=== PATIENT | male | born 1975 | race Caucasian/White ===

== ENCOUNTER 2022-05-03 18:12 | Emergency (ER) | payer OTHER ==
[2022-05-03 19:05] VITALS: BP 156/93; PULSE 65; RESP 20; TEMP 97.5
[2022-05-03] MEDS ORDERED: LIDOCAINE 1% INJ 10MG/ML (20 ML MDV) SQ ONE (19:41)
--- NOTE | 2022-05-03 20:14 | ED ---
Wound/Laceration HPI - General Chief Complaint: Wound/Laceration Stated Complaint: finger laceration Time Seen by Provider: 05/03/22 19:23 Source: patient, RN notes reviewed Mode of arrival: ambulatory Limitations: no limitations - History of Present Illness Initial Comments: This is a 46-year-old male who presents to the emergency department with a lace ration to the left hand, just underneath the left index finger. Patient states that he was trying to take his trailer off of his pickup truck, when he acquired the laceration. Denies being in any significant pain at this time. His last tetanus vaccine was 2-3 years ago. Denies any fevers, chills, sore throat, cough, dyspnea, chest pain, palpitations, abdominal pain, nausea, vomiting, diarrhea, back pain, or headaches. Extremity Location: Left: Hand Place: home Patient Tetanus UTD: Yes Context: accidental - Related Data Previous Rx's Medication Instructions Recorded Cephalexin [Keflex] 500 mg PO Q8HR 5 Days #15 cap 05/03/22 Allergies Allergy/AdvReac Type Severity Reaction Status Date / Time No Known Allergies Allergy Verified 05/03/22 19:05 Review of Systems ROS Statement: Those systems with pertinent positive or pertinent negative responses have been documented in the HPI. ROS Other: All systems not noted in ROS Statement are negative. Past Medical History Past Medical History: No Reported History History of Any Multi-Drug Resistant Organisms: None Reported Past Surgical History: Orthopedic Surgery Past Psychological History: No Psychological Hx Reported Smoking Status: Never smoker Past Alcohol Use History: None Reported Past Drug Use History: Marijuana General Exam Limitations: no limitations General appearance: alert, in no apparent distress Head exam: Present: atraumatic, normocephalic, normal inspection Respiratory exam: Present: normal lung sounds bilaterally. Absent: respiratory distress, wheezes, rales, rhonchi, stridor Cardiovascular Exam: Present: regular rate, normal rhythm, normal heart sounds. Absent: systolic murmur, diastolic murmur, rubs, gallop, clicks Neurological exam: Present: alert, oriented X3, CN II-XII intact Psychiatric exam: Present: normal affect, normal mood Skin exam: Present: other (4 cm laceration on the left palm, just inferior to the bottom of the left index finger. Visible subcutaneous tissue. Minor active bleeding.) Course Vital Signs 05/03/22 19:03 Temperature 97.5 F L Pulse Rate 65 Respiratory 20 Rate Blood Pressure 156/93 O2 Sat by Pulse 98 Oximetry Procedures - Laceration Laceration #1 Consent Obtained: verbal consent Indication: laceration Site: hand Size (cm): 4 Description: linear Depth: simple, single layer Sedation/Analgesia: none Anesthetic Used: lidocaine 1% Anesthesia Technique: local infiltration Amount (mls): 2 Pre-repair: wound explored, irrigated extensively Type of Sutures: nylon Size of Sutures: 4-0 Number of Sutures: 5 Technique: simple, interrupted Medical Decision Making - Medical Decision Making This is a 46-year-old male who presents to the emergency department for a laceration to the left hand. This was repaired with sutures. The patient's tetanus status is up-to-date. Given that the wound was fairly contaminated, patient will be placed on a 5 day course of Keflex. He is instructed to return for suture removal in 10-12 days. Signs and symptoms of infection reviewed, and he is advised to return to the emergency department for reevaluation if this occurs. Advised [id number] ibuprofen and Tylenol as needed for pain relief. Return precautions reviewed in depth, the patient is instructed to return to the emergency department with any new, worsening, or concerning symptoms. Patient verbalized understanding. This case was discussed in detail with the attending ED physician. Presentation, findings, and treatment plan discussed in detail as well. Disposition Clinical Impression: Laceration Disposition: HOME SELF-CARE Instructions (If sedation given, give patient instructions): Care For Your Stitches (ED) Additional Instructions: Return to the emergency department with any new, worsening, or concerning symptoms and in 10-12 days for removal of your stitches. Take the antibiotic as prescribed for 5 days. Take ibuprofen and Tylenol as needed for pain relief. Prescriptions: Cephalexin [Keflex] 500 mg PO Q8HR 5 Days #15 cap Is patient prescribed a controlled substance at d/c from ED?: No Referrals: Curt Simpson MD [Primary Care Provider] - 1-2 days
== END 2022-05-03 20:43 | disposition home or self-care (01) ==
LOC: EC 18:12
DX: S61.412A Laceration without foreign body of left hand, initial encounter (principal); W26.8XXA Contact with other sharp object(s), not elsewhere classified, initial encounter
CPT/HCPCS: 12002; 99282; J2001

== ENCOUNTER 2024-11-03 08:33 | Observation (INO) | payer OTHER ==
[2024-11-03 09:15] LABS: Basophils # (A) 0.1 k/uL (0-0.2); Basophils % (A) 0 %; Eosinophils # (A) 0.3 k/uL (0-0.7); Eosinophils % (A) 3 %; HCT 49.2 % (39.0-53.0); HGB 17.1 gm/dL (13.0-17.5); Lymphocytes # (A) 2.4 k/uL (1.0-4.8); Lymphocytes % (A) 23 %; MCH 32.7 pg (25.0-35.0); MCHC 34.8 g/dL (31.0-37.0); MCV 93.9 fL (80.0-100.0); Mean Platelet Volume 7.5; Monocytes # (A) 0.5 k/uL (0-1.0); Monocytes % (A) 5 %; Neutrophils # (A) 7.4 k/uL (1.3-7.7); Neutrophils % (A) 68 %; Platelet Count 302 k/uL (150-450); RBC 5.24 m/uL (4.30-5.90); RDW 12.4 % (11.5-15.5); WBC 10.8 k/uL (3.8-10.6)
[2024-11-03 09:39] LABS: African American GFR (CKD) >90 (>60 ml/min/1.73 sqM); Anion Gap 10 mmol/L; Blood Urea Nitrogen 17 mg/dL (9-20); Calcium 9.5 mg/dL (8.4-10.2); Carbon Dioxide 22 mmol/L (22-30); Chloride 104 mmol/L (98-107); Glucose 114 mg/dL (74-99); Non-African American GFR(CKD) >90 (>60 ml/min/1.73 sqM); Sodium 136 mmol/L (137-145); Total Protein 7.5 g/dL (6.3-8.2)
[2024-11-03 09:40] LABS: ALT 28 U/L (4-49); Albumin 4.7 g/dL (3.5-5.0); Total Bilirubin 1.6 mg/dL (0.2-1.3)
[2024-11-03 09:43] LABS: AST 28 U/L (17-59); Magnesium 1.8 mg/dL (1.6-2.3); Potassium 4.8 mmol/L (3.5-5.1)
[2024-11-03 09:44] LABS: Alkaline Phosphatase 37 U/L (38-126)
--- NOTE | 2024-11-03 10:05 | CT ---
EXAMINATION TYPE: CT brain wo con DATE OF EXAM: 11/03/2024 COMPARISON: None CLINICAL INDICATION: Male, 49 years old with history of Dizziness, blurry vision; PHH, Dizziness, olena rry vision TECHNIQUE: CT of the brain performed without contrast with sagittal and coronal reformats. CT DLP: 1154.[address] CTDI: mGy Automated exposure control for dose reduction was used. FINDINGS: There is no acute intracranial hemorrhage, mass effect, or midline shift identified. The ventricles and sulci are within normal limits in size. The globes are intact and the visualized sinuses are pj ar. IMPRESSION: No acute intracranial hemorrhage, mass effect, or midline shift is seen. [facility], , 11/03/2024 10:03 AM
--- NOTE | 2024-11-03 10:11 | ED ---
General Adult HPI - General Chief complaint: Recheck/Abnormal Lab/Rx Stated complaint: high blood pressure Time Seen by Provider: 11/03/24 08:51 Source: patient, RN notes reviewed Mode of arrival: ambulatory Limitations: no limitations - History of Present Illness Initial comments: 49-year-old male presents emergency department chief complaint generalized not feeling well. Patient states he has help dizzy, lightheaded, intermittent headache and hypertension the last several days he was seen in urgent care sent here for evaluation. He states that he usually has a high blood pressure when he goes into his physician's office but states its lower at the end of the diagnosing with whitecoat syndrome. Patient states today is not lower any has been having symptoms last several days. Denies complaint of chest pain no abdominal pain no focal weakness. Patient does not take any current medications. - Related Data Previous Rx's Medication Instructions Recorded Cephalexin [Keflex] 500 mg PO Q8HR 5 Days #15 cap 05/03/22 Allergies Allergy/AdvReac Type Severity Reaction Status Date / Time No Known Allergies Allergy Verified 11/03/24 08:44 Review of Systems ROS Statement: Those systems with pertinent positive or pertinent negative responses have been documented in the HPI. ROS Other: All systems not noted in ROS Statement are negative. Past Medical History Past Medical History: No Reported History History of Any Multi-Drug Resistant Organisms: None Reported Past Surgical History: Orthopedic Surgery Past Psychological History: No Psychological Hx Reported Smoking Status: Never smoker Past Alcohol Use History: None Reported Past Drug Use History: Marijuana General Exam Limitations: no limitations General appearance: alert, in no apparent distress Head exam: Present: atraumatic, normocephalic, normal inspection Eye exam: Present: normal appearance, PERRL, EOMI. Absent: scleral icterus, conjunctival injection, periorbital swelling ENT exam: Present: normal exam, normal oropharynx, mucous membranes moist Neck exam: Present: normal inspection, full ROM. Absent: tenderness, meningismus, lymphadenopathy Respiratory exam: Present: normal lung sounds bilaterally. Absent: respiratory distress, wheezes, rales, rhonchi, stridor Cardiovascular Exam: Present: regular rate, normal rhythm, normal heart sounds. Absent: systolic murmur, diastolic murmur, rubs, gallop, clicks GI/Abdominal exam: Present: soft, normal bowel sounds. Absent: distended, tend erness, guarding, rebound, rigid Course Vital Signs 11/03/24 11/03/24 11/03/24 08:41 10:23 10:52 Temperature 97.7 F Pulse Rate 62 72 Respiratory 20 Rate Blood Pressure 192/120 187/110 180/116 O2 Sat by Pulse 98 Oximetry EKG Findings - EKG Comments: EKG Findings:: EKG performed at 9: 00 sinus bradycardia with a rate of 57 PA 148 QRS 104 QT/QTc 395/390 - EKG Results: EKG: interpreted by LORNE Medical Decision Making - Medical Decision Making Was pt. sent in by a medical professional or institution (, PA, VOCATIONAL PSYCHOLOGIST, urgent care, hospital, or group home...) When possible be specific @ -No Did you speak to anyone other than the patient for history (EMS, parent, family, police, friend...)? What history was obtained from this source @ -No Did you review nursing and triage notes (agree or disagree)? Why? @ -I reviewed and agree with nursing and triage notes Were old charts reviewed (outside hosp., previous admission, EMS record, old EKG, old radiological studies, urgent care reports/EKG's, group home records)? Report findings @ -No old charts were reviewed Differential Diagnosis (chest pain, altered mental status, abdominal pain women, abdominal pain men, vaginal bleeding, weakness, fever, dyspnea, syncope, headache, dizziness, GI bleed, back pain, seizure, CVA, palpatations, mental health, musculoskeletal)? @ -Differential Headache: Migraine, tension, cluster, carbon monoxide, central venous thrombosis, pension karma temporal arteritis, acute closure glaucoma, intercranial hemorrhage, mastoiditis, sinusitis, head injury, this is not meant to be an all-inclusive list. EKG interpreted by me (3pts min.). @ -As above X-rays interpreted by me (1pt min.). @ -None done CT interpreted by me (1pt min.). @ -CT brain showing no acute intracranial hemorrhage, mass effect U/S interpreted by me (1pt. min.). @ -None done What testing was considered but not performed or refused? (CT, X-rays, U/S, labs)? Why? @ -None What meds were considered but not given or refused? Why? @ -None Did you discuss the management of the patient with other professionals (professionals i.e. , PA, VOCATIONAL PSYCHOLOGIST, lab, RT, psych nurse, social worker delinquency prevention, postulant, teacher, planned giving officer, child support case officer)? Give summary @Dr. Simpson for admission Was smoking cessation discussed for >3mins.? @ -No Was critical care preformed (if so, how long)? @ -No Were there social determinants of health that impacted care today? How? (Homelessness, low income, unemployed, alcoholism, drug addiction, transportation, low edu. Level, literacy, decrease access to med. care, shelter, rehab)? @ -No Was there de-escalation of care discussed even if they declined (Discuss DNR or withdrawal of care, Hospice)? DNR status @ -No What co-morbidities impacted this encounter? (DM, HTN, Smoking, COPD, CAD, Can cer, CVA, ARF, Chemo, Hep., AIDS, mental health diagnosis, sleep apnea, morbid obesity)? @ -None Was patient admitted / discharged? Hospital course, mention meds given and route, prescriptions, significant lab abnormalities, going to OR and other pertinent info. @ -Admitted patient presented for increasing dizziness, blurred vision and hypertension. Patient had multiple doses of antihypertensive meds without relief. Patient has concerns for hypertensive urgency. Patient will be admitted for blood pressure control, neurology evaluation Undiagnosed new problem with uncertain prognosis? @ -No Drug Therapy requiring intensive monitoring for toxicity (Heparin, Nitro, Insulin, Cardizem)? @ -No Were any procedures done? @ -No Diagnosis/symptom? @ -Hypertension, dizziness, visual disturbance Acute, or Chronic, or Acute on Chronic? @ -Acute Uncomplicated (without systemic symptoms) or Complicated (systemic symptoms)? @ -Complicated Side effects of treatment? @ -No Exacerbation, Progression, or Severe Exacerbation? @ -No Poses a threat to life or bodily function? How? (Chest pain, USA, AR, pneumonia, PE, COPD, DKA, ARF, appy, cholecystitis, CVA, Diverticulitis, Homicidal, Suicidal, threat to staff... and all critical care pts) @ -No - Lab Data Result diagrams: 11/03/24 09:02 11/03/24 09:02 Lab Results 11/03/24 11/03/24 11/03/24 Range/Units 09:02 09:02 09:02 WBC 10.8 H (3.8-10.6) k/uL RBC 5.24 (4.30-5.90) m/uL Hgb 17.1 (13.0-17.5) gm/dL Hct 49.2 (39.0-53.0) % MCV 93.9 (80.0-100.0) fL MCH 32.7 (25.0-35.0) pg MCHC 34.8 (31.0-37.0) g/dL RDW 12.4 (11.5-15.5) % Plt Count 302 (150-450) k/uL MPV 7.5 Neutrophils % 68 % Lymphocytes % 23 % Monocytes % 5 % Eosinophils % 3 % Basophils % 0 % Neutrophils # 7.4 (1.3-7.7) k/uL Lymphocytes # 2.4 (1.0-4.8) k/uL Monocytes # 0.5 (0-1.0) k/uL Eosinophils # 0.3 (0-0.7) k/uL Basophils # 0.1 (0-0.2) k/uL Sodium 136 L (137-145) mmol/L Potassium 4.8 (3.5-5.1) mmol/L Chloride 104 (98-107) mmol/L Carbon Dioxide 22 (22-30) mmol/L Anion Gap 10 mmol/L BUN 17 (9-20) mg/dL Creatinine 0.85 (0.66-1.25) mg/dL Est GFR (CKD-EPI)AfAm >90 (>60 ml/min/1.73 sqM) Est GFR (CKD-EPI)NonAf >90 (>60 ml/min/1.73 sqM) Glucose 114 H (74-99) mg/dL Calcium 9.5 (8.4-10.2) mg/dL Magnesium 1.8 (1.6-2.3) mg/dL Total Bilirubin 1.6 H (0.2-1.3) mg/dL AST 28 (17-59) U/L ALT 28 (4-49) U/L Alkaline Phosphatase 37 L (38-126) U/L Troponin I <0.012 (0.000-0.034) ng/mL Total Protein 7.5 (6.3-8.2) g/dL Albumin 4.7 (3.5-5.0) g/dL Disposition Clinical Impression: Hypertensive urgency, Dizziness, Visual disturbance Disposition: ADMITTED IP TO THIS HOSP Condition: Fair Referrals: Curt Simpson MD [Primary Care Provider] - 1-2 days Time of Disposition: 11:20
[2024-11-03] MEDS: hydrALAZINE HCL 20 MG/ML 1 ML VIAL IVP STA ×2 (10:25→11:29)
[2024-11-03] MEDS ORDERED: NALOXONE 0.4 MG/ML 1 ML VIAL IV PRN (11:20)
[2024-11-03] MEDS: LABETALOL 5 MG/ML VIAL MDV IVP STA (11:59)
[2024-11-03] MEDS: LORazepam 2 MG/ML INJ IV STA (13:56)
[2024-11-03] MEDS: hydrALAZINE HCL 20 MG/ML 1 ML VIAL IVP PRN (14:35)
[2024-11-03] MEDS: METOPROLOL SUCCINATE (ER) 100 MG TAB.ER.24H PO SCH (22:36)
[2024-11-03] MEDS: hydrALAZINE HCL 50 MG TAB PO SCH (22:36)
--- NOTE | 2024-11-04 00:21 | HP ---
HISTORY AND PHYSICAL CHIEF COMPLAINT: Dizziness and visual changes. HISTORY OF PRESENT ILLNESS: First known admission for this 49-year-old white male. He has not been in the office for some time. He presented to the emergency room with visual changes and dizziness and was found to have a blood pressure of 190/120. He denied any chest pain or shortness of breath. REVIEW OF SYSTEMS: He has had no other symptoms. Past medical history, family history, personal and social histories are all otherwise unremarkable or noncontributory. He does have a family history of hypertension. PHYSICAL EXAMINATION: VITAL SIGNS: Blood pressure is elevated at 190/120 with a pulse of 88 and respirations of 32. GENERAL: He appeared to be in no acute distress. HEAD, EARS, EYES, NOSE, MOUTH, THROAT: Normal. NECK: Neck veins are not distended. Carotids are normal. CHEST: Clear. CARDIAC: Demonstrates sinus rhythm and no murmurs or extra sounds. ABDOMEN: Soft, nontender. EXTREMITIES: Normal. NEUROLOGICAL: He is intact. ASSESSMENT: He is admitted to the hospital with diagnoses of, 1. Hypertensive urgency. 2. Visual changes. 3. Dizziness. PLAN: 1. Bedrest. 2. IV fluids. 3. Uncontrolled hypertension. MMODL / IJN: [id number] /
--- NOTE | 2024-11-04 08:04 | P.CNNES ---
History of Present Illness Consult date: 11/03/24 Requesting physician: Mark Evans Reason for Consult: Dizziness, visual disturbance History of Present Illness: Patient is a 49-year-old right-handed male, with white coat hypertension, otherwise healthy, came to the hospital computer networking instructor today at 8:33 AM for dizziness and blurred vision. Patient states he has been having blurred vision off and on, feels sometimes loss of equilibrium and lightheadedness. The symptoms started yesterday and has been present all day yesterday. He denies any loss of vision, only foggy vision in both eyes. Denies any vertigo. If he moves too fast, needs to hold onto something. When he stands up, he gets pounding in the head but only for short moment. Denies any numbness or tingling of the extremities, facial region, or any focal weakness, slurred speech or faci al droop. Patient denies any history of hypertension. He goes for her yearly checkup, and the last time he had physical was in August 2023. Patient states that whenever he goes to the doctor, initial blood pressure is high, but it comes back to normal by the end of the encounter. He goes to [facility], and sometimes checks his blood pressure is usually normal. Vital signs on arrival blood pressure 192/120, came down to 187/110 and then went up to 201/114. Pulse rate 62, temperature 97.7. Blood test shows WBC 10.8 normal hemoglobin and platelets. Sodium 136 potassium 4.8, normal renal functions, AST and ALT are normal. Troponin negative. CT head showed no acute intracranial process. I personally reviewed CT head, agree with the findings. Visualized paranasal sinuses appears clear. EKG showed sinus bradycardia. At present patient still has some foggy vision, and lightheadedness, off and on, feels slightly better. He was given something for anxiety and that has helped. He has not had eyes checked for last few years. Patient does not take any medications at home. Does not take any antiplatelet medication at home. He smokes marijuana every day, denies any tobacco use. He has been drinking at least 2 beers every day for the last 2-3 months. He works as a aluminum welder. Review of Systems All pertinent positive and negative review of systems mentioned the HPI, otherwise unremarkable. Past Medical History Past Medical History: No Reported History History of Any Multi-Drug Resistant Organisms: None Reported Past Surgical History: Orthopedic Surgery Past Psychological History: No Psychological Hx Reported Smoking Status: Never smoker Past Alcohol Use History: None Reported Past Drug Use History: Marijuana Medications and Allergies Home Medications Medication Instructions Recorded Confirmed Type No Known Home Medications 11/03/24 11/03/24 History Allergies Allergy/AdvReac Type Severity Reaction Status Date / Time No Known Allergies Allergy Verified 11/03/24 12:39 Physical Examination - Vital Signs Vital Signs: Vital Signs Temp Pulse Resp BP Pulse Ox 11/03/24 14:33 81 16 194/128 98 11/03/24 12:48 67 18 207/104 96 11/03/24 12:21 67 16 180/102 99 11/03/24 11:50 71 16 201/114 98 11/03/24 10:52 72 180/116 11/03/24 10:23 187/110 11/03/24 08:41 97.7 F 62 20 192/120 98 Intake and Output 11/03/24 11/03/24 11/03/24 06:59 14:59 22:59 Other: Weight 133.81 kg Patient is a middle aged male, very pleasant, in no acute distress. Patient is alert awake oriented to time place and person. Speech and language functions are normal. Patient can name and repeat very well. No aphasia or dysarthria. Attention, concentration and fund of knowledge is adequate. On cranial nerve examination, pupils are equal, round and reacting to light, vi sual bright are full on confrontation, with no neglect on double simultaneous stimulation. Extraocular muscles are intact with no nystagmus. Face is symmetric, tongue protrudes to the midline. Palatal elevation and sensation normal, hearing and shoulder shrug normal, facial sensation normal. On muscle strength testing, there is no pronator drift and the strength is normal in arms and legs distally and proximally. Deep tendon reflexes are symmetric 1+ in the arms and legs and plantars down going. Sensory to touch is equal with no neglect on double simultaneous stimulation. Cerebellar function showed no ataxia for yyjmoa-[id number]-rxyz testing. No dysdiadochokinesia. No ataxia for dnqi-om-[id number] testing on either side. Tone and bulk of muscles normal. Gait deferred.. On general examination, there is no carotid bruit heard on either side, and there is no murmur, S1-S2 audible. Chest is clear on consultation. Abdomen is soft nontender. No organomegaly, bowel sounds present. Peripheral pulses are present. No peripheral edema. Results - Laboratory Findings CBC and BMP: 11/03/24 09:02 11/03/24 09:02 Abnormal Lab Findings: Abnormal Labs 11/03/24 11/03/24 09:02 09:02 WBC 10.8 H Sodium 136 L Glucose 114 H Total Bilirubin 1.6 H Alkaline Phosphatase 37 L Assessment and Plan Assessment: * Intermittent dizziness, lightheadedness, blurred/foggy vision bilaterally, (all since yesterday), likely due to accelerated hypertension. Patient denies any focal symptoms and clinical examination is completely nonfocal. Doubt cerebral ischemia. * Uncontrolled hypertension with hypertensive urgency. * Marijuana use Plan: * Gradual control of blood pressure, to normotensive levels. * Avoid hypotension * Check fasting lipid panel, hemoglobin A1c * Consider starting aspirin 81 mg daily. * Patient recommended to follow up with child welfare counselor/garde manger for routine eye exam outpatient. * Suggest abstinence from marijuana. UDS. * Neurology will follow clinically. Thank you for the consult.
[2024-11-04] MEDS: ASPIRIN 81 MG PO SCH (08:13)
[2024-11-04 12:17] LABS: Amphetamine Screen,Urine Not Detected (NotDetected); Barbiturate Screen,Urine Not Detected (NotDetected); Benzodiazepines Screen,Urine Detected (NotDetected); Cocaine Screen,Urine Not Detected (NotDetected); Methadone Screen, Urine Not Detected (NotDetected); Opiate Screen,Urine Not Detected (NotDetected); Oxycodone Screen, Urine Not Detected (NotDetected); Phencyclidine Screen,Urine Not Detected (NotDetected); Tricyclic Antidepressant,Urine Not Detected (NotDetected); Urn Cannabinoid Scrn Detected (NotDetected)
[2024-11-04] MEDS: LOSARTAN 50 MG TAB PO SCH (14:09)
[2024-11-04 17:00] LABS: Chol/HDL Ratio 3.57 Ratio; LDL Cholesterol,Calculated 102.1 mg/dL (0.0-131.0); VLDL Calculation 18.78 mg/dL (5.00-40.00)
[2024-11-04] MEDS: cloNIDine HCL 0.1 MG TAB PO SCH (18:32)
[2024-11-04 19:41] VITALS: RESP 16
--- NOTE | 2024-11-04 20:02 | HP ---
HISTORY AND PHYSICAL CHIEF COMPLAINT: Headache with nausea and vomiting. HISTORY OF PRESENT ILLNESS: This is a first known admission for this 49-year-old white male. He presented to the emergency room with a significantly elevated blood pressure. He has had no chest pain. He does admit to drinking quite a bit of alcohol on a daily basis. In the emergency room, his systolic blood pressure was over 200. REVIEW OF SYSTEMS: He denies any blurred vision, chest pain, hematemesis, melena, etc. Past medical history, family history and personal and social histories are otherwise unremarkable, except as already mentioned. SOCIAL HISTORY: He is a nonsmoker. PHYSICAL EXAMINATION: HEAD EARS, EYES, NOSE, MOUTH AND THROAT: Normal. NECK: Supple. Chest is clear. CARDIAC EXAM: Normal sinus rhythm. ABDOMEN: Soft, nontender. EXTREMITIES: Normal. IMPRESSION: 1. Hypertensive urgency. 2. Headache. 3. Nausea and vomiting. 4. Alcohol abuse. PLAN: 1. Bed rest. 2. IV fluids. 3. Control hypertension. 4. Lipid profile. MMODL / IJN: [id number] /
[2024-11-04] MEDS: ALPRAZolam 0.25 MG TAB PO PRN (20:05)
--- NOTE | 2024-11-04 23:14 | PN ---
PROGRESS NOTE DATE OF SERVICE: 11/04/2024 CHIEF COMPLAINT: Hypertension. HISTORY OF PRESENT ILLNESS: This gentleman feels better. He has no further nausea, vomiting or headache, his blood pressure is still high. He is very anxious and wants to leave. PHYSICAL EXAMINATION: CHEST: Clear. CARDIAC EXAM: Normal. His diastolic pressure is still over 100. ABDOMEN: Soft, nontender. IMPRESSION: 1. Hypertensive urgency. 2. Anxiety. PLAN: 1. Add Cozaar 100 mg once a day. 2. He may sign out AMA. MMODL / IJN: [id number] /
[2024-11-05 03:39] VITALS: TEMP 97.9
[2024-11-05 08:13] VITALS: BP 149/98; PULSE 78
--- NOTE | 2024-11-05 12:00 | P.PN ---
Subjective Progress Note Date: 11/04/24 Patient was seen for a follow-up. Patient's family members were also present by the bedside. Patient states all symptoms have resolved. Denies any numbness tingling, focal weakness, speech difficulty or any other symptoms. The dizziness has gone. Blood pressure is improved, but still slightly high. Objective - Vital Signs Vital signs: Vital Signs Temp 98.5 F 11/04/24 10:30 Pulse 73 11/04/24 14:45 Resp 18 11/04/24 14:45 BP 164/97 11/04/24 14:45 Pulse Ox 97 11/04/24 14:45 FiO2 Intake & Output 11/03/24 11/04/24 11/04/24 18:59 06:59 18:59 Weight 133.81 kg - Exam General Status, speech and language functions are normal. Cranial nerves are normal. Visual bright are full. Face is symmetric. Tongue protrudes at midline. On muscle strength testing there is no pronator drift and the strength is normal in arms and legs. Sensory to touch is equal with no neglect. No ataxia for [id number]-[id number] testing on either sides. Gait is normal. - Labs CBC & Chem 7: 11/03/24 09:02 11/03/24 09:02 Labs: Abnormal Lab Results - Last 24 Hours (Table) 11/04/24 Range/Units 10:55 U Benzodiazepines Scrn Detected H (NotDetected) U Marijuana (THC) Screen Detected H (NotDetected) Assessment and Plan Assessment: * Intermittent dizziness, lightheadedness, blurred/foggy vision bilaterally, (all since yesterday), likely due to accelerated hypertension. Patient denies any focal symptoms and clinical examination is completely nonfocal. Doubt cerebral ischemia. * Uncontrolled hypertension with hypertensive urgency. * Borderline lipids * Marijuana use Plan: * Gradual control of blood pressure, to normotensive levels. * Avoid hypotension * Fasting lipid panel cholesterol 168, LDL 102, HDL 47 and triglycerides 93. We will start Lipitor 20 mg daily to bring LDL to <70. * Hemoglobin A1c 5.5 * Continue aspirin 81 mg daily (started this admission). * Patient recommended to follow up with client insights consultant/laborer cutting tool for routine eye exam outpatient. * Suggest abstinence from marijuana. UDS. * Neurologically clear for discharge.
--- NOTE | 2024-11-06 01:41 | DS ---
DISCHARGE SUMMARY CHIEF COMPLAINT: Headache, nausea, vomiting, and hypertensive urgency. HISTORY OF PRESENT ILLNESS AND PHYSICAL EXAM: Details of this man's history and physical can be found in the initial workup. COURSE IN THE HOSPITAL: After admission, he was placed on bedrest, started on intravenous fluids, and aggressive measures were taken to lower his blood pressure. He was doing well on the , and systolic was running around 160 or lower and his diastolic was around 90. He is feeling well, and the headache was gone as well as the nausea and vomiting and he was discharged. He will follow up in the office in several days. They will obtain the blood pressure monitoring device to use at home, watching to make sure that he does not become hypotensive or his blood pressure climb again. FINAL DIAGNOSIS: Hypertensive urgency. OPERATIONS: None. CONSULTATIONS: None. CONDITION ON DISCHARGE: He has improved. KAMAR / ANDRES: [id number] /
== END 2024-11-05 09:57 | disposition home or self-care (01) ==
LOC: EC 08:33 → 3SCARD 10:53
PROVIDERS: ADMIT Family Medicine; ATTEND Family Medicine
DX: I16.0 Hypertensive urgency (principal); I10 Essential (primary) hypertension; F41.9 Anxiety disorder, unspecified; F12.90 Cannabis use, unspecified, uncomplicated; F10.10 Alcohol abuse, uncomplicated; Z79.82 Long term (current) use of aspirin; Z82.49 Family history of ischemic heart disease and other diseases of the circulatory system
CPT/HCPCS: 96376; 96374; 96375; 99285; 36415; 93005; 80061; 80053; 83735; 84484; 85025; 80306; 83036; 70450; G0378 ×3; J2060; J0360; J1920